=== PATIENT | female | born 1985 | race Caucasian/White ===

== ENCOUNTER 2017-06-08 02:05 | Emergency (ER) | payer SELFPAY ==
[2017-06-08] MEDS ORDERED: TETANUS/DIPHTHERIA/PERTUSSIS 0.5 ML SYRINGE IM ONE (02:39)
--- NOTE | 2017-06-08 02:56 | ED Physician Documentation ---
PD HPI HEAD INJURY - Stated complaint Stated Complaint: HEAD INJURY - Chief complaint Chief Complaint: General - History obtained from History obtained from: Patient, Family - History of Present Illness Mechanism of head injury: Fell Where head injury occurred: Home Timing - onset: How many minutes ago (30) Location of injury: Back Associated symptoms: No: LOC, AMS, Neck pain Similar symptoms before: Has not had sx before Recently seen: Not recently seen - Additional information Additional information: Patient is a 32 year old female who came to the emergency department for a head laceration. according to patient and friends, patient was at a get together this evening and had some drinks. Patient was walking down some stairs, mid way down she sat down and got sick, and then ended up falling down some additional stairs cutting the back of her head on the way down. Upon initial evaluation in the emergency department patient is only complaining of mild headache but is otherwise awake and alert. Review of Systems Constitutional: denies: Fever, Chills Eyes: denies: Loss of vision, Photophobia Ears: denies: Drainage/discharge Nose: denies: Epistaxis Throat: denies: Dental pain / toothache Cardiac: reports: Reviewed and negative Respiratory: denies: Dyspnea, Cough GI: reports: Nausea, Vomiting : reports: Reviewed and negative Skin: reports: Laceration (s) Musculoskeletal: denies: Neck pain, Back pain, Extremity pain, Joint pain, Extremity swelling, Joint swelling Neurologic: reports: Headache, Head injury. denies: Generalized weakness, Focal weakness, Numbness, LOC Immunocompromised: denies: Immunocompromised PD PAST MEDICAL HISTORY - Past Medical History Past Medical History: Yes Psych: Depression, Anxiety - Past Surgical History Past Surgical History: Yes - Present Medications Home Medications: Ambulatory Orders Medication Instructions Recorded Confirmed Cetirizine [ZyrTEC] 10 mg PO DAILY 07/16/14 06/08/17 Citalopram [CeleXA] 40 mg PO DAILY 09/03/14 06/08/17 - Allergies Allergies/Adverse Reactions: Allergies Allergy/AdvReac Type Severity Reaction Status Date / Time No Known Drug Allergies Allergy Verified 06/08/17 02:16 - Social History Does the pt smoke?: Yes Smoking Status: Current every day smoker Does the pt drink ETOH?: Yes Does the pt have substance abuse?: No - Immunizations Immunizations are current?: Yes - POLST Patient has POLST: No PD ED PE NORMAL - Vitals Vital signs reviewed: Yes - General General: Alert and oriented X 3, Well developed/nourished - HEENT HEENT: PERRL, Moist mucous membranes, Pharynx benign - Neck Neck: Supple, no meningeal sign, No bony TTP - Cardiac Cardiac: RRR, No murmur - Respiratory Respiratory: No respiratory distress, Clear bilaterally - Abdomen Abdomen: Soft, Non tender, Non distended - Extremities Extremities: No deformity, Normal ROM s pain, No edema, No calf tenderness / cord - Neuro Neuro: Alert and oriented X 3, No motor deficit, No sensory deficit, Normal speech - Psych Psych: Normal mood, Normal affect PD ED PE EXPANDED - HEENT HEENT: Head injury (4cm stellate laceration on left posterior scalp), Ears normal. No: Right nares epsitaxis, Left nares epistaxis Results - Vitals Vitals: Vital Signs - 24 hr 06/08/17 06/08/17 02:14 03:10 Temperature 36.2 C L Heart Rate 78 72 Respiratory 18 16 Rate Blood Pressure 151/94 H 133/74 H O2 Saturation 98 99 Oxygen O2 Source Room air Procedures - Laceration (location) posterior scalp Length in cm: 4 Wound type: Stellate Neurovascular status: Sensory intact, Vascular intact Anesthesia: Lidocaine 2% with epi Wound Preparation: Irrigated copiously NS Skin layer closure: Janny Other: Patient tolerated well, No complications, Dressing applied, Tetanus UTD Complexity: Simple PD MEDICAL DECISION MAKING - ED course Complexity details: reviewed old records, reviewed results, re-evaluated patient , considered differential, d/w patient, d/w family ED course: Patient was seen and examined at bedside. Patient stated she did not want any imaging. Patient's wound was cleaned and repaired as described above. Patient required no further work up and was stable for discharge with outpatient follow up. Departure - Departure Disposition: 01 Home, Self Care Clinical Impression: Laceration of head Condition: Good Instructions: ED Head Injury Closed, ED Laceration Scalp Stitch Or Stap Follow-Up: primary,care provider [Other] - As Needed Comments: Your symptoms today are being caused by a head laceration. You should take a shower tonight and try to keep the area clean and dry. the janny will need to come out in about 7-10 days. You can take motrin or tylenol as needed for pain. You can expect to be in more pain tomorrow and the next day. You might also develop some nausea and headaches. You should limit the amount of screen time you have and avoid any additional head trauma. You may return to the emergency department at any time for new, worsening or uncontrollable symptoms. Discharge Date/Time: 06/08/17 03:10
[2017-06-08 03:10] VITALS: BP 133/74
== END 2017-06-08 03:10 | disposition home or self-care (01) ==
LOC: ED 02:05
PROC: 0HQ0XZZ Repair Scalp Skin, External Approach (ICD-10-PCS; principal; 2017-06-08)
DX: S01.01XA Laceration without foreign body of scalp, initial encounter (principal); W10.9XXA Fall (on) (from) unspecified stairs and steps, initial encounter; F17.200 Nicotine dependence, unspecified, uncomplicated
CPT/HCPCS: 12002; 99283